=== PATIENT | female | born 1995 | race Hispanic/Latino ===

== ENCOUNTER 2019-06-08 04:11 | Emergency (ER) | payer OTHER, MEDICAID, SELFPAY ==
[2019-06-08 04:23] VITALS: BP 133/85; PULSE 107; RESP 19; TEMP 36.9; O2SAT 100; BMI 28.3
--- NOTE | 2019-06-08 04:32 | ED_ITS ---
HPI - Headache General Chief Complaint: Headache Stated Complaint: really bad headache/behind right eye hurting Time Seen by Provider: 06/08/19 04:32 Source: patient Mode of arrival: Family Vehicle Limitations: no limitations History of Present Illness HPI Narrative: 24-year-old female comes to the emergency department with complaint of really bad headache behind her right eye and cheek. She states that she started with a cold about 10 days ago. She had nasal congestion as well as runny nose, a little bit of sinus pressure. She had not had any fevers. She states she felt like she was improving and then developed increasing sinus pressure and continue nasal congestion. She has had dark green discolored nasal drainage. She states she does not really have photophobia. She has developed headache over the right eye and cheek. She states she does not normally get migraines headaches frequently. She has had a little bit of postnasal drip. She has had a dry cough. It has not been productive. She has not had any chest pain or shortness of breath. No nausea, no vomiting no other GI or urinary symptoms. She has not any rashes or skin changes. She feels like there is some slight swelling over the right cheek but she has not appreciated any visible swelling. Related Data Previous Rx's Medication Instructions Recorded doxycycline hyclate 100 mg PO BID #20 cap 06/08/19 fluticasone propionate [Flonase 1 spray NASAL BID #15.8 ml 06/08/19 Allergy Relief] Allergies Allergy/AdvReac Type Severity Reaction Status Date / Time Penicillins Allergy Rash Verified 06/08/19 04:26 Review of Systems Review of Systems ROS Unobtainable: All systems reviewed & are unremarkable except as noted in HPI and below Patient History Social History Smoking Status: Never smoker Smoking Status: Never smoker alcohol intake frequency: a few times a week Substance Use Type: marijuana Exam Narrative Exam Narrative: GEN: well nourished, well appearing female, alert and oriented x 3, patient appears to be in mild distress. HEENT: Atraumatic, pupils are equal round reactive to light, no photophobia, extraocular movements are intact, nares are clear, TMs are clear with fluid behind the right TM but no erythema, TM is retracted on the right. No bulge on the left and no erythema or fluid noted on the left, there is no conjunctival pallor. Patient has moderate tenderness over the right maxillary sinus and very mildly over the frontal. She has no swelling over the right maxillary with + for tenderness but no erythema. Throat is clear without any exudates, erythema, tonsillar enlargement or uvular deviation, mild anterior lymphadenopathy on the right. No hoarseness or muffled voice. HEART: Regular rate and rhythm without murmur, clicks, rubs. LUNGS:Lungs clear to auscultation, no wheezes, rales, crackles, chest moves symmetrically ABD:bowel sounds normal, soft, non-tender, no guarding, rebound, rigidity, no masses noted, no hepatosplenomegal MSCL: Non-tender, no muscle atrophy, full range of motion, normal gait NEURO:CN 2-12 intact, sensation normal SKIN: No rash, no erythema or other skin changes. Initial Vital Signs Initial Vital Signs: Vital Signs Temperature 98.5 F 06/08/19 04:23 Pulse Rate 107 H 06/08/19 04:23 Respiratory Rate 19 06/08/19 04:23 Blood Pressure 133/85 06/08/19 04:23 Pulse Oximetry 100 06/08/19 04:23 Course Vital Signs Vital signs: Vital Signs - 8 hr 06/08/19 04:23 Temperature 98.5 F Pulse Rate 107 H Respiratory Rate 19 Blood Pressure 133/85 Pulse Oximetry 100 MDM - Headache MDM Narrative Medical decision making narrative: Patient has symptoms and physical exam finding consistent with sinusitis. Suspect she may be an early bacterial sinusitis but discussed that she should try conservative measures with antihistamines, intranasal steroids and nasal rinses. If she is not having any improvement or start developed fevers she was given a prescription for antibiotics. Patient initially deferred anything additional for pain but then did ask if she could have medication and was given 1 shot of Toradol IM. She has been having some improvement with Advil and was encouraged to continue this or Tylenol or both for pain. Discharge Plan Departure Patient Disposition: Home Clinical Impression: Acute sinus infection Qualifiers: Sinusitis location: maxillary Recurrence: not specified as recurrent Qualified Code(s): J01.00 - Acute maxillary sinusitis, unspecified Instructions: DI for Sinusitis Activity Restrictions/Additional Instructions: Follow-up in the next 3-5 days if you are not having any improvement of your symptoms after treatment with medications. Use Flonase 1 spray to both nostrils twice daily for the next 7 days. I would recommend taking a Claritin or Zyrtec 1 tablet once daily for 7 days. I would recommend saline rinse or a Neti pot once or twice daily for symptoms until asymptomatic. You may continue Tylenol and/or ibuprofen as needed for pain. If your continuing to have symptoms after 24-48 hours of treatment or developing fevers greater 100.4 F, start antibiotics. Return to the ER for recurrent fevers, increasing pain, swelling of the face, redness, swelling of the mouth or oropharynx, neck, severe headaches, passing out, persistent vomiting or other new or concerning symptoms. Prescriptions: New fluticasone propionate [Flonase Allergy Relief] 50 mcg/actuation spra y,suspension 1 spray NASAL BID Qty: 15.8 RF: 0 doxycycline hyclate 100 mg capsule 100 mg PO BID Qty: 20 RF: 0 Referrals: Reji Motta MD [Primary Care Provider] -
[2019-06-08] MEDS: KETOROLAC 60 MG/2 ML VIAL 30 MG IM (05:06)
[2019-06-08 05:44] VITALS: BP 131/76; PULSE 91; RESP 15; O2SAT 100
== END 2019-06-08 05:45 | disposition home or self-care (01) ==
PROVIDERS: Emergency Provider Emergency Medicine; PCP Family Medicine
DX: J01.00 Acute maxillary sinusitis, unspecified (principal)
CPT/HCPCS: 96372; 99283; J1885

== ENCOUNTER 2019-06-09 04:22 | Emergency (ER) | payer OTHER, MEDICAID, SELFPAY ==
[2019-06-09 04:31] VITALS: BP 148/88; PULSE 125; RESP 18; TEMP 37.7; O2SAT 96; BMI 28.3
--- NOTE | 2019-06-09 04:49 | ED_ITS ---
HPI - Fever General Chief Complaint: Fever Stated Complaint: fever Time Seen by Provider: 06/09/19 04:49 Source: patient Mode of arrival: Family Vehicle Limitations: no limitations History of Present Illness HPI Narrative: This is a 24-year-old female comes in with complaint of fever and headache. Patient seen by myself last night. She had a headache that was located around the right eye and cheek. She states that since then that is still present but mildly and feels a little bit further back. She states she did have a fever yesterday but did develop 1 this evening. She has had nasal congestion with some greenish discharge. She states that the sensation of swelling does feel better. She does not have any photophobia. She denies any other blurriness or vision changes. She does not have any ear pain. She does not have any neck pain. She has had a little bit of a dry cough. It has not been productive. She denies any chest pain or shortness of breath. No nausea, no vomiting, no bowel movement issues such as diarrhea constipation, no frequency dysuria urgency. She has not any redness, swelling or skin changes. She did try some Advil this evening before sleep which was helpful but then woke up with fevers type feelings and increased headache. She did have 1 dose of antibiotic not from the prescription given but from a friend although she states that it was the same antibiotic. She did not take any other medications. She has not had any other sick contacts that she is aware. Related Data Previous Rx's Medication Instructions Recorded doxycycline hyclate 100 mg PO BID #20 cap 06/08/19 fluticasone propionate [Flonase 1 spray NASAL BID #15.8 ml 06/08/19 Allergy Relief] doxycycline hyclate 100 mg PO BID #20 cap 06/09/19 Allergies Allergy/AdvReac Type Severity Reaction Status Date / Time Penicillins Allergy Rash Verified 06/08/19 04:26 Review of Systems Review of Systems ROS Unobtainable: All systems reviewed & are unremarkable except as noted in HPI and below Patient History Social History Smoking Status: Never smoker Smoking Status: Never smoker alcohol intake frequency: a few times a week Substance Use Type: marijuana Exam Narrative Exam Narrative: GEN: well nourished, well appearing female, alert and oriented x 3, patient appears to be in mild distress. HEENT: Atraumatic, pupils are equal round reactive to light, extraocular movements are intact, nares are clear, TMs are clear with no fluid, there is no conjunctival pallor. Throat is clear without any exudates, erythema, tonsillar enlargement or uvular deviation, patient is only mildly tender over the right cheek. No swelling is noted. Patient has full range of motion of her neck with negative Kernig's and Brudzinski. HEART: Regular rate and rhythm without murmur, clicks, rubs. LUNGS:Lungs clear to auscultation, no wheezes, rales, crackles, chest moves symmetrically ABD:bowel sounds normal, soft, non-tender, no guarding, rebound, rigidity, no masses noted, no hepatosplenomegaly :No CVA tenderness MSCL: Non-tender, no muscle atrophy, muscles strength 5/5 upper and lower extremities, full range of motion, normal gait NEURO:CN 2-12 intact, sensation normal. SKIN: Rash, no erythema petechiae. Initial Vital Signs Initial Vital Signs: Vital Signs Temperature 99.9 F H 06/09/19 04:31 Pulse Rate 125 H 06/09/19 04:31 Respiratory Rate 18 06/09/19 04:31 Blood Pressure 148/88 H 06/09/19 04:31 Pulse Oximetry 96 06/09/19 04:31 Course Orders Ordered: ED Orders 06/09/19 04:50 Basic Metabolic Panel Stat Complete Blood Count AUTO DIFF Stat Lactate (Lactic Acid) Stat Procalcitonin Stat 06/09/19 05:13 CT sinus screen wo con Stat 06/09/19 05:19 Blood Culture Stat 06/09/19 05:28 Influenza A & B (PCR) Stat Discontinued Medications Sodium Chloride (Normal Saline 0.9%) 1,000 mls @ 1,000 mls/hr IV BOLUS ONE Stop: 06/09/19 06:01 Last Admin: 06/09/19 05:25 Dose: 1,000 mls/hr Documented by: YARA Ketorolac Tromethamine (Toradol) 30 mg IV NOW ONE Stop: 06/09/19 05:11 Last Admin: 06/09/19 05:24 Dose: 30 mg Documented by: YARA Vital Signs Vital signs: Vital Signs - 8 hr 06/09/19 04:31 06/09/19 06:13 06/09/19 06:15 Temperature 99.9 F H 98.4 F Pulse Rate 125 H 100 H Respiratory Rate 18 19 Blood Pressure 148/88 H Blood Pressure [Left Arm] 125/76 Pulse Oximetry 96 97 MDM - Fever Lab Data Attestation: I reviewed the patient's lab results. Result diagrams: 06/09/19 04:50 06/09/19 04:50 Labs: Lab Results 06/09/19 06/09/19 06/09/19 Range/Units 04:50 04:50 04:50 WBC 16.0 H (4.5-11.0) X10^3/uL RBC 4.20 (4.0-5.2) X10^6/uL Hgb 12.3 (12.0-16.0) g/dL Hct 36.9 (36-46) % MCV 87.8 (80-100) fL MCH 29.4 (26-34) PG MCHC 33.5 (30-36) % RDW 13.7 (11.6-14.8) % Plt Count 233 (150-400) X10^3/uL Neut % (Auto) 77.6 H (50-75) % Lymph % (Auto) 13.4 L (25-40) % [place] % (Auto) 8.1 (3-14) % Eos % (Auto) 0.7 L (2-4) % Baso % (Auto) 0.2 (0-2) % Neut # (Auto) 95505 H (3500-3651) /uL Lymph # (Auto) 2100 (9926-9947) /uL [place] # (Auto) 1300 H (0-900) /uL Eos # (Auto) 100 (0-450) /uL Baso # (Auto) 0 (0-100) /uL Sodium 138 (137-145) mmol/L Potassium 3.9 (3.4-5.1) mmol/L Chloride 107 (98-107) mmol/L Carbon Dioxide 21 L (22-32) mmol/L BUN 11 (7-17) mg/dL Creatinine 0.54 (0.52-1.04) mg/dL Estimated GFR > 60.0 (>60) mL/min BUN/Creatinine Ratio 20.4 (6-22) Glucose 134 H (70-100) mg/dL Lactate (0.7-2.1) mmol/L Calcium 9.3 (8.4-10.2) mg/dL Procalcitonin < 0.05 (<0.5) ng/mL Influenza A (RT-PCR) (NEGATIVE) Influenza B (RT-PCR) (NEGATIVE) 06/09/19 06/09/19 Range/Units 04:50 05:28 WBC (4.5-11.0) X10^3/uL RBC (4.0-5.2) X10^6/uL Hgb (12.0-16.0) g/dL Hct (36-46) % MCV (80-100) fL MCH (26-34) PG MCHC (30-36) % RDW (11.6-14.8) % Plt Count (150-400) X10^3/uL Neut % (Auto) (50-75) % Lymph % (Auto) (25-40) % [place] % (Auto) (3-14) % Eos % (Auto) (2-4) % Baso % (Auto) (0-2) % Neut # (Auto) (2726-9078) /uL Lymph # (Auto) (9471-5146) /uL [place] # (Auto) (0-900) /uL Eos # (Auto) (0-450) /uL Baso # (Auto) (0-100) /uL Sodium (137-145) mmol/L Potassium (3.4-5.1) mmol/L Chloride (98-107) mmol/L Carbon Dioxide (22-32) mmol/L BUN (7-17) mg/dL Creatinine (0.52-1.04) mg/dL Estimated GFR (>60) mL/min BUN/Creatinine Ratio (6-22) Glucose (70-100) mg/dL Lactate 1.2 (0.7-2.1) mmol/L Calcium (8.4-10.2) mg/dL Procalcitonin (<0.5) ng/mL Influenza A (RT-PCR) Flu a negative (NEGATIVE) Influenza B (RT-PCR) Flu b negative (NEGATIVE) Imaging Data CT sinus: Radiologist's Impression: Pansinusitis is detailed with air-fluid level within the left maxillary sinus suggesting acute on chronic sinusitis. Occlusion of the bilateral frontoethmoid recess is, ostiomeatal units and right nasal passage. Right septal deviation and nasal septal spur. MDM Narrative Medical decision making narrative: Patient comes in with elevated white count, no fever here in the department. Lactate is negative. Patient's influenza is negative. CT does show pansinusitis acute on chronic. glucose is 134, pr ocalcitonin is negative. Patient was encouraged to go ahead and take doxycycline. She is also encouraged to continue with the additional treatment for sinusitis. Discharge Plan Departure Patient Disposition: Home Clinical Impression: Pansinusitis Qualifiers: Chronicity: acute Instructions: DI for Sinusitis Activity Restrictions/Additional Instructions: Follow up with your physician in the next week for recheck. Fill your prescriptions and start your antibiotics today. Use Flonase 1 spray to both nostrils twice daily for the next 7 days. I would recommend taking a Claritin or Zyrtec 1 tablet once daily for 7 days. I would recommend saline rinse or a Neti pot once or twice daily for symptoms until asymptomatic. You may continue Tylenol and/or ibuprofen as needed for pain. Return to the ER for recurrent fevers, increasing pain, swelling of the face, redness, swelling of the mouth or oropharynx, neck, severe headaches, passing out, persistent vomiting or other new or concerning symptoms. Prescriptions: New doxycycline hyclate 100 mg capsule 100 mg PO BID Qty: 20 RF: 0 No Action fluticasone propionate [Flonase Allergy Relief] 50 mcg/actuation spray, suspension 1 spray NASAL BID Qty: 15.8 RF: 0 doxycycline hyclate 100 mg capsule 100 mg PO BID Qty: 20 RF: 0 Referrals: Reji Motta MD [Primary Care Provider] -
--- NOTE | 2019-06-09 05:13 | DI.CT.S_ITS ---
PROCEDURE: CT SINUS SCREEN WO CON INDICATIONS: fever, sinus pain, now headache. TECHNIQUE: Noncontrast 3.0 mm axial images acquired from the frontal sinuses to the mid-sella, with coronal and sagittal reformats. For radiation dose reduction, the following was used: automated exposure control, adjustment of mA and/or kV according to patient size. COMPARISON: None. FINDINGS: Image quality: Excellent. Maxillary Sinuses: No bony remodeling or destruction. Air-fluid levels bilaterally with superimposed mucosal thickening. Ethmoid Air Cells: No bony remodeling or destruction. Mucosal thickening bilaterally. Sphenoid Sinuses: No bony remodeling or destruction. The mucosal thickening bilaterally. Frontal Sinuses: No bony remodeling or destruction. Mucosal thickening bilaterally. Ostiomeatal Complexes: Ostiomeatal complexes are occluded. No Claudia cells. Miscellaneous: Visualized intra-orbital contents are normal. No adrien bullosa or paradoxical turbinate curvature. Mild rightward nasal septal deviation. IMPRESSION: Severe pansinusitis. ENT consultation is suggested. No significant discrepancy with the [employer] shift lead radiology preliminary report. Dictated by: Shiva Campos M.D. on 06/09/2019 at 7:32 Approved by: Shiva Campos M.D. on 06/09/2019 at 10:49
[2019-06-09 05:20] LABS: BUN Creatinine Ratio 20.4 (6-22); Blood Urea Nitrogen 11 mg/dL (7-17); Calcium 9.3 mg/dL (8.4-10.2); Carbon Dioxide 21 mmol/L (22-32); Chloride 107 mmol/L (98-107); Estimated Glomerular Filt Rate > 60.0 mL/min (>60); Glucose 134 mg/dL (70-100); HEMOLYSIS < 15 (0-50); Potassium 3.9 mmol/L (3.4-5.1); Sodium 138 mmol/L (137-145)
[2019-06-09 05:21] LABS: Add Manual Diff / Slide Review NO; Basophils Absolute Auto 0 /uL (0-100); Basophils Percent Auto 0.2 % (0-2); Eosinophils Absolute Auto 100 /uL (0-450); Eosinophils Percent Auto 0.7 % (2-4); Hematocrit 36.9 % (36-46); Hemoglobin 12.3 g/dL (12.0-16.0); Lactate (Lactic Acid) 1.2 mmol/L (0.7-2.1); Lymphocytes Absolute Auto 2100 /uL (1100-4500); Lymphocytes Percent Auto 13.4 % (25-40); Mean Corpuscular HGB Conc 33.5 % (30-36); Mean Corpuscular Hemoglobin 29.4 PG (26-34); Mean Corpuscular Volume 87.8 fL (80-100); Monocytes Absolute Auto 1300 /uL (0-900); Monocytes Percent Auto 8.1 % (3-14); Neutrophils Absolute Auto 12400 /uL (1500-7000); Neutrophils Percent Auto 77.6 % (50-75); Platelet Count 233 X10^3/uL (150-400); Red Cell Distribution Width 13.7 % (11.6-14.8)
[2019-06-09] MEDS: KETOROLAC 60 MG/2 ML VIAL 30 MG IV (05:24)
[2019-06-09] MEDS: SODIUM CHLORIDE 0.9% 1,000 ML 1000 ML IV (05:25)
[2019-06-09 05:53] LABS: Procalcitonin < 0.05 ng/mL (<0.5)
[2019-06-09 06:05] LABS: Influenza A - CEPHEID Flu A NEGATIVE (NEGATIVE); Influenza B - CEPHEID Flu B NEGATIVE (NEGATIVE)
[2019-06-09 06:13] VITALS: BP 125/76; PULSE 100; RESP 19; O2SAT 97
[2019-06-09 06:15] VITALS: TEMP 36.9
== END 2019-06-09 06:38 | disposition home or self-care (01) ==
PROVIDERS: Emergency Provider Emergency Medicine; PCP Family Medicine
DX: J01.40 Acute pansinusitis, unspecified (principal); D72.829 Elevated white blood cell count, unspecified
CPT/HCPCS: 36415; 70486; 80048; 83605; 84145; 85025; 87040; 87502; 96361; 96374; 99284; J1885